=== PATIENT | male | born 1940 | race Caucasian/White ===

== ENCOUNTER 2018-10-20 23:03 | Emergency (ER) | payer MEDICARE ==
[~2018-10-20] VITALS: Ht 175.3 cm; Wt 84.0 kg
[~2018-10-20 23:03] MED LIST: ACIPHEX20 M1 PO; ALTACE5 MG OR; AMOXICILLIN/CL875 MG PO; ATENOLOL25 MG PO; AVODART0.5 MG OR; BAYER LOW81 MG OR; CALCIUM500 M4 OR; CLARITIN10 M1 PO; DOXAZOSIN4 M1 OR; LIPITOR80 MG OR; LUTEIN20 M1 OR; MULTIVITAM10 OR; NAPROSYN500 MG OR; NORVASC10 M1 OR; NORVASC10 MG OR; OMEGA 3340 MG OR; PLAVIX75 MG PO; PREVALITE4 G1 OR; PRILOSEC20 MG OR; TENORMIN25 MG OR
[2018-10-20 23:45] LABS: URINE BILIRUBIN - DIPSTICK NEGATIVE (NEGATIVE); URINE BLOOD DIPSTICK NEGATIVE (NEGATIVE); URINE COLOR YELLOW; URINE GLUCOSE - DIPSTICK NEGATIVE (NEGATIVE); URINE KETONE NEGATIVE (NEGATIVE); URINE LEUK ESTERASE NEGATIVE (NEGATIVE); URINE NITRITE - DIPSTICK NEGATIVE (Negative); URINE PH 6.5 (4.5-8.0); URINE PROTEIN - DIPSTICK NEGATIVE (NEG-TRACE); URINE SPECIFIC GRAVITY <=1.005; URINE UROBILINOGEN - DIPSTICK 0.2 E.U./dL (0.2)
[2018-10-20 23:45] LABS: HEMATOCRIT 47.1 % (39.0-50.0); HEMOGLOBIN 15.4 g/dl (14.0-18.0); IMMATURE GRANULOCYTES 0.3 % (0.0-5.0); MEAN CELL VOLUME 92.9 fL CALC (80.0-100.0); MEAN CORPUSCULAR HGB 30.4 pG CALC (26.0-32.0); MEAN CORPUSCULAR HGB CONC 32.7 g/L CALC (32.0-36.0); NEUT# 4.39 thou/uL (1.82-7.42); RED BLOOD COUNT 5.07 mill/uL (4.70-6.10); RED CELL DISTRI WIDTH 13.7 % (11.5-15.5)
[2018-10-20 23:57] LABS: ALKALINE PHOSPHATASE 50 u/l (38-126); ANION GAP 14 (6-22 (CALC)); BILIRUBIN, TOTAL 0.6 mg/dL (0.0-1.4); BUN 19 mg/dL (8-23); BUN/CREATININE RATIO 20 (12-20 (CALC)); CARBON DIOXIDE 28 mmol/l (22-30); CHLORIDE 104 mmol/l (95-108); CREATININE 0.9 mg/dL (0.7-1.3); GFR > 60 ML/MIN (>=60 (CALC)); GFR FOR AFR.AMER. > 60 ML/MIN (>=60 (CALC)); POTASSIUM 3.8 mmol/l (3.5-5.1); SGOT/AST 34 u/l (19-48); SODIUM 142 mmol/l (137-146)
[2018-10-20 23:58] LABS: ALBUMIN 4.4 g/dL (3.2-5.0); TOTAL PROTEIN 7.2 g/dL (6.3-8.2)
[2018-10-21 00:10] LABS: MYOGLOBIN 42 ng/mL (0 - 121)
[2018-10-21] MEDS ORDERED: CARVEDILOL3.125 MG PO (00:55)
[2018-10-21] MEDS ORDERED: PROSCAR5 MG PO (01:07)
[2018-10-21] MEDS ORDERED: TAMSULOSIN0.4 MG PO (01:08)
[2018-10-21] MEDS ORDERED: ZANTAC 150 PO (01:09)
[2018-10-21 01:35] VITALS: BP 134/76
== END 2018-10-21 01:37 ==
LOC: ED 23:03
PROVIDERS: Emergency Medicine
DX: I48.91 Unspecified atrial fibrillation (principal); I25.10 Atherosclerotic heart disease of native coronary artery without angina pectoris; I10 Essential (primary) hypertension; Z95.5 Presence of coronary angioplasty implant and graft

== ENCOUNTER 2022-01-26 08:49 | Emergency (ER) | payer MEDICARE ==
[~2022-01-26] VITALS: Ht 175.3 cm; Wt 78.0 kg
[~2022-01-26 08:49] MED LIST changes: +ALTACE2.5 M1 PO; -ALTACE5 MG OR; +ALTACE5 MG PO; +CALTRATE PO; +CARVEDILOL3.125 MG PO; +COREG12.5 MG PO; +ELIQUIS5 MG PO; +GNP ACETAMINOP500 MG PO; +HM LUTEIN20 MG PO; +LIPITOR80 M1 PO; -LIPITOR80 MG OR; +LOTRISONE CREAM15 G1 EX; -LUTEIN20 M1 OR; +PROSCAR5 MG PO; +RESTASIS0.05 % OT; +TAMSULOSIN0.4 MG PO; +VALIUM5 MG PO; +ZANTAC 150 PO
[2022-01-26] MEDS ORDERED: AMOXICILLIN500 MG PO (09:56)
[2022-01-26] MEDS ORDERED: ULTRAM50 M1 PO (09:57)
[2022-01-26 10:16] VITALS: BP 129/78
== END 2022-01-26 10:20 | disposition home or self-care (01) ==
LOC: ED 08:49
DX: S50.811A Abrasion of right forearm, initial encounter (principal); S60.511A Abrasion of right hand, initial encounter; S50.311A Abrasion of right elbow, initial encounter; I10 Essential (primary) hypertension; E78.00 Pure hypercholesterolemia, unspecified; W01.0XXA Fall on same level from slipping, tripping and stumbling without subsequent striking against object, initial encounter; Y93.H3 Activity, building and construction; Y92.89 Other specified places as the place of occurrence of the external cause; Y99.2 Volunteer activity; Z79.01 Long term (current) use of anticoagulants; Z95.2 Presence of prosthetic heart valve

== ENCOUNTER 2022-09-23 15:55 | Emergency (ER) | payer MEDICARE ==
[2022-09-23] VITALS (24 sets, daily range): BP systolic 95–130; BP diastolic 58–84
[~2022-09-23] VITALS: Ht 175.3 cm; Wt 90.1 kg
[~2022-09-23 15:55] MED LIST changes: +AMOXICILLIN500 MG PO; +ULTRAM50 M1 PO
[2022-09-23 17:20] LABS: ALBUMIN 4.1 g/dL (3.2-5.0); ALKALINE PHOSPHATASE 53 u/l (38-126); ANION GAP 13 (6-22 (CALC)); BUN 23 mg/dL (8-23); BUN/CREATININE RATIO 21 (12-20 (CALC)); CARBON DIOXIDE 24 mmol/l (22-30); CHLORIDE 103 mmol/l (95-108); CREATININE 1.1 mg/dL (0.7-1.3); GFR FOR AFR.AMER. > 60 ML/MIN (>=60 (CALC)); GFR OTHER RACES > 60 ML/MIN (>=60 (CALC)); POTASSIUM 4.4 mmol/l (3.5-5.1); SGOT/AST 40 u/l (19-48); SODIUM 136 mmol/l (137-146); TOTAL PROTEIN 6.7 g/dL (6.3-8.2)
[2022-09-23 17:21] LABS: BILIRUBIN, TOTAL 1.5 mg/dL (0.2-1.3)
[2022-09-23 17:22] LABS: ACT PARTIAL THROMBO TIME 30.1 SECONDS (20.0-32.5)
[2022-09-23 17:28] LABS: BASO% 0.9 % (0-3); EOS% 5.2 % (0-8); IMMATURE GRANULOCYTES 0.2 % (0.0-5.0); INTERNATIONAL NORMALIZED RATIO 1.6 RATIO (0.7-1.3); LYMPH% 13.5 % (15-41); MEAN CELL VOLUME 90.9 fL CALC (80.0-100.0); MEAN CORPUSCULAR HGB 25.5 pG CALC (26.0-32.0); MONO% 12.6 % (2-13); NEUT# 3.92 thou/uL (1.82-7.42); NEUT% 67.6 % (42-76); PROTHROMBIN TIME 15.3 SECONDS (9.0-12.5); RED BLOOD COUNT 2.63 mill/uL (4.70-6.10); RED CELL DISTRI WIDTH 18.8 % (11.5-15.5)
[2022-09-23 17:30] LABS: HEMATOCRIT 23.9 % (39.0-50.0); HEMOGLOBIN 6.7 g/dl (14.0-18.0)
[2022-09-24] VITALS (7 sets, daily range): BP systolic 106–121; BP diastolic 62–77
== END 2022-09-24 01:43 | disposition short-term general hospital (02) ==
LOC: ED 15:55
PROVIDERS: Family Medicine
PROC: 30233N1 Transfusion of Nonautologous Red Blood Cells into Peripheral Vein, Percutaneous Approach (ICD-10-PCS; principal; 2022-09-23)
DX: K92.2 Gastrointestinal hemorrhage, unspecified (principal); D64.9 Anemia, unspecified; I10 Essential (primary) hypertension; I48.91 Unspecified atrial fibrillation; E78.00 Pure hypercholesterolemia, unspecified; Z79.01 Long term (current) use of anticoagulants; Z95.1 Presence of aortocoronary bypass graft; Z95.810 Presence of automatic (implantable) cardiac defibrillator; Z95.5 Presence of coronary angioplasty implant and graft; Z95.2 Presence of prosthetic heart valve
CPT/HCPCS: P9016; Q9967; S0164